=== PATIENT | female | born 1970 | race Caucasian/White ===

== ENCOUNTER 2019-08-19 05:55 | Day surgery (SDC) | payer OTHER ==
[~2019-08-19] VITALS: Ht 160 cm; Wt 84.7 kg
[~2019-08-19 05:55] MED LIST: AMLODIPINE; BENAZEPRIL; RANITIDINE
[2019-08-19 07:30] VITALS: Ht 160 cm; Wt 84.7 kg
[2019-08-19 07:32] VITALS: BP 122/78; PULSE 67; RESP 14
[2019-08-19] MEDS ORDERED: FENTAnyl 50 MCG/ML VIAL ONE (08:19)
[2019-08-19] MEDS ORDERED: MIDAZOLAM 1 MG/ML 2 ML INJ ONE (08:19)
[2019-08-19 08:34] VITALS: BP 110/67; PULSE 68; RESP 18
== END 2019-08-19 17:52 | disposition home or self-care (01) ==
LOC: GIL 05:55
PROVIDERS: ATTEND Internal Medicine Gastroenterology
DX: K29.50 Unspecified chronic gastritis without bleeding (principal)
CPT/HCPCS: 43239; 84703; 88305; 88312; J2250; J3010; Z7610